=== PATIENT | female | born 1950 | race Caucasian/White ===

== ENCOUNTER 2019-03-20 08:10 | Inpatient (IN) | payer MEDICARE, MEDICAID ==
[~2019-03-20] VITALS: Ht 160 cm; Wt 98.0 kg
[2019-03-20] MEDS ORDERED: DILTIAZEM HCL 5MG/ML 5ML VIAL IV ONE ×4 (08:22→12:15)
[2019-03-20] MEDS ORDERED: ASPIRIN 81MG TABLET PO ONE (08:30)
[2019-03-20 09:07] LABS: BASOPHILS % 0.3 % (0.0-2.0); EOSINOPHILS % 0.1 % (0.0-5.0); HEMATOCRIT. 48.5 % (36.0-48.0); HEMOGLOBIN. 15.3 g/dL (12.0-16.0); LYMPHOCYTES % 12.2 % (20.0-50.0); MEAN CORPUSCULAR HEMOGLOBIN 29.5 pg (28.0-32.0); MEAN CORPUSCULAR VOLUME 93.3 fL (81.0-99.0); MEAN PLATELET VOLUME 9.2 fl (7.4-10.4); MONOCYTES % 5.4 % (2.0-8.0); PLATELET 312 x1000/uL (130-400)
[2019-03-20 09:12] LABS: CHLORIDE 100 mEq/L (98-107)
[2019-03-20] MEDS ORDERED: DILTIAZEM HCL 180MG CAPSULE CD 24HR PO ONE (09:30)
[2019-03-20] MEDS ORDERED: INSULIN REGULAR (HUMULIN R) 300UNITS/3ML SUBCUT ONE ×2 (09:45→14:30)
[2019-03-20] MEDS ORDERED: ONDANSETRON HCL 4MG/2ML INJ IV ONE (09:45)
[2019-03-20] MEDS ORDERED: DILTIAZEM HCL 125 MG in DEXT 5% WATER 100 ML IV ONE ×2 (09:45→10:15)
[2019-03-20] MEDS ORDERED: ENOXAPARIN 100MG/ML SYR SUBCUT ONE (09:45)
[2019-03-20] MEDS ORDERED: ASPIRIN 300MG SUPP PR ONE (09:45)
[2019-03-20] MEDS ORDERED: PIPERACILLIN/TAZ 3.375G PREMIX 50 ML IV ONE (10:15)
[2019-03-20 11:11] LABS: BG BASE EXCESS -10.8 mmol/L (-2.0-2.0); BG CARBOXYHEMOGLOBIN 0.3 % (0.5-1.5); BG DEOXYHEMOGLOBIN 5.2 % (0.0-5.0); BG FRACTION INSPIRED OXYGEN 21; BG HCO3 ACT 13.8 mmol/L (22.0-26.0); BG METHEMOGLOBIN 0.3 % (0.0-1.5); BG OXYGEN SATURATION 94.8 % (92.0-98.5); BG OXYHEMOGLOBIN 94.2 % (94.0-97.0); BG PCO2 28.2 mmHg (35.0-45.0); BG PH 7.308 (7.350-7.450); BG PO2 80.6 mmHg (75.0-100.0); BG SAMPLE SITE RIGHT RADIAL; BG TOTAL HEMOGLOBIN 15.3 g/dL (12.0-18.0); BG VENT MODE ROOM AIR
[2019-03-20 11:33] LABS: CLARITY URINE CLEAR (CLEAR); COLOR URINE YELLOW (YELLOW); KETONES URINE 2+ (NEGATIVE); LEUKOCYTE ESTERASE URINE NEGATIVE (NEGATIVE); NITRITE URINE NEGATIVE (NEGATIVE); OCCULT BLOOD URINE 2+ (NEGATIVE); PH URINE 6.5 (4.5-8.0); PROTEIN URINE 4+ (NEGATIVE); SPECIFIC GRAVITY URINE 1.021 (1.005-1.030); UROBILINOGEN URINE 0.2 E.U./dL (0.2-1.0)
[2019-03-20 12:13] LABS: VITAMIN B12 SERUM 250 pg/mL (211-911)
[2019-03-20 12:35] LABS: FOLIC ACID (FOLATE) SERUM > 20.00 ng/mL (>5.38)
[2019-03-20 12:38] LABS: METHADONE URINE SCREEN NEGATIVE (NEGATIVE); OPIATES URINE SCREEN NEGATIVE (NEGATIVE)
[2019-03-20 12:39] LABS: *AMPHETAMINES SCREEN URINE NEGATIVE (NEGATIVE); *BARBITURATES SCREEN URINE NEGATIVE (NEGATIVE); *BENZODIAZEPINES SCREEN URINE NEGATIVE (NEGATIVE); *COCAINE SCREEN URINE NEGATIVE (NEGATIVE); CANNABINOID URINE SCREEN NEGATIVE (NEGATIVE); PHENCYCLIDINE URINE SCREEN NEGATIVE (NEGATIVE)
[2019-03-20] MEDS ORDERED: IPRATROPIUM BROMIDE (0.02%) 0.5MG/2.5ML NEB HHN PRN (13:15)
[2019-03-20 14:30] LABS: INR 1.1; PARTIAL THROMBOPLASTIN TIME 21.9 sec (23.4-31.0); PROTHROMBIN TIME 11.4 sec (9.6-11.0)
[2019-03-20] MEDS ORDERED: AMIODARONE HCL 150 MG in DEXT 5% WATER 100 ML IV NR ×2 (14:45→19:00)
[2019-03-20] MEDS ORDERED: AMIODARONE HCL 900 MG in DEXT 5% WATER 482 ML IV SCH ×4 (15:00)
[2019-03-20] MEDS ORDERED: HYDROCODONE/ACETAMINOPHEN 5/325MG TABLET PO PRN (17:15)
[2019-03-20] MEDS ORDERED: IPRATROPIUM/ALBUTEROL 0.5-3(2.5)MG/3ML NEB HHN PRN (17:15)
[2019-03-20] MEDS ORDERED: ACETAMINOPHEN 325MG TABLET PO PRN (17:15)
[2019-03-20] MEDS ORDERED: ONDANSETRON HCL 4MG/2ML INJ IV PRN (17:15)
[2019-03-20 17:53] LABS: T4 FREE 0.95 ng/dL (0.76-1.46)
[2019-03-20] MEDS ORDERED: INSULIN REGULAR (DRIP) 100 UNITS in SODIUM CHLORIDE 0.9% 100 ML IV SCH (18:30)
[2019-03-20] MEDS ORDERED: SODIUM BICARBONATE 8.4% 1 MEQ/ML 50ML SYR IV SCH (23:11)
[2019-03-20 23:54] VITALS: BP 134/105
[2019-03-21] VITALS (90 sets, daily range): BP systolic 103–169; BP diastolic 45–105
[2019-03-21] MEDS ORDERED: INSULIN REGULAR (DRIP) 100 UNITS in SODIUM CHLORIDE 0.9% 100 ML IV SCH ×2
[2019-03-21] MEDS ORDERED: SODIUM CHLORIDE 0.9% 1,000 ML IV SCH (00:08)
[2019-03-21] MEDS ORDERED: LABETALOL HCL 20MG/4ML CARPUJECT IV PRN (00:09)
[2019-03-21] MEDS: DEXT 5%/LACTATED RINGERS 1,000 ML IV SCH ×2 (00:48→23:02)
[2019-03-21] MEDS ORDERED: DEXTROSE 50% WATER 50ML SYRINGE IV PRN ×3 (01:30→02:30)
[2019-03-21] MEDS: NICARDIPINE 100 MG in SODIUM CHLORIDE 0.9% 60 ML IV PRN (02:08)
[2019-03-21] MEDS: DILTIAZEM HCL 125 MG in DEXT 5% WATER 100 ML IV PRN ×2 (02:22→12:46)
[2019-03-21] MEDS ORDERED: BLOOD SUGAR DIAGNOSTIC STRIP TEST SCH (03:00)
[2019-03-21] MEDS ORDERED: INSULIN REGULAR (DRIP) 100 UNITS in SODIUM CHLORIDE 0.9% 99 ML IV SCH (03:00)
[2019-03-21] MEDS: MANNITOL 20% 125 ML IV SCH ×3 (04:04→13:43)
[2019-03-21 04:07] LABS: BASOPHILS % 0.2 % (0.0-2.0); EOSINOPHILS % 0.1 % (0.0-5.0); HEMATOCRIT. 42.5 % (36.0-48.0); HEMOGLOBIN. 13.8 g/dL (12.0-16.0); LYMPHOCYTES % 8.2 % (20.0-50.0); MEAN CORPUSCULAR HEMOGLOBIN 29.3 pg (28.0-32.0); MEAN CORPUSCULAR VOLUME 90.2 fL (81.0-99.0); MEAN PLATELET VOLUME 8.5 fl (7.4-10.4); MONOCYTES % 10.2 % (2.0-8.0); NEUTROPHILS % 81.3 % (40.0-76.0); PLATELET 319 x1000/uL (130-400); RED BLOOD CELL COUNT 4.72 mill/uL (4.2-5.4); RED CELL DISTRIBUTION WIDTH 15.1 % (11.6-14.6)
[2019-03-21] MEDS: BLOOD SUGAR DIAGNOSTIC STRIP TEST SCH ×4 (05:34→20:59)
[2019-03-21] MEDS ORDERED: DEXAMETHASONE 10 MG/ML VIAL IV SCH (06:00)
[2019-03-21] MEDS: INSULIN LISPRO 100 UNITS/ML SUBCUT SCH ×4 (06:46→21:05)
[2019-03-21] MEDS ORDERED: MAGNESIUM 2 G PREMIX 50 ML IV ONE (08:00)
[2019-03-21] MEDS ORDERED: MAGNESIUM 2 G PREMIX 50 ML IV NR (08:30)
[2019-03-21] MEDS: NYSTATIN POWDER 15GM TOP SCH ×3 (09:43→17:18)
[2019-03-21] MEDS: LEVETIRACETAM 500 MG in SODIUM CHLORIDE 0.9% 100 ML IV SCH ×2 (09:43→20:56)
[2019-03-21] MEDS ORDERED: INSULIN GLARGINE UD 100 UNITS/ML SYR SUBCUT SCH ×2 (10:00)
[2019-03-21] MEDS ORDERED: LIDOCAINE HCL 1% 20ML VIAL (Pyxis) INJ ONE (10:24)
[2019-03-21] MEDS ORDERED: SODIUM BICARBONATE 4% (2.4MEQ) 5ML VIAL IV ONE (10:24)
[2019-03-21] MEDS: FAMOTIDINE 20MG/2ML VIAL IV SCH (11:56)
[2019-03-21] MEDS: ESMOLOL 2500MG PREMIX 250 ML IV PRN ×2 (11:58→20:07)
[2019-03-21] MEDS ORDERED: ACETAMINOPHEN 650MG SUPP PR PRN (12:00)
[2019-03-21] MEDS ORDERED: INSULIN LISPRO 100 UNITS/ML SUBCUT NR (13:00)
[2019-03-21] MEDS ORDERED: INSULIN LISPRO 100 UNITS/ML SUBCUT ONE (17:00)
[2019-03-21] MEDS: DEXAMETHASONE 4MG/ML 1ML VIAL IV SCH (17:17)
[2019-03-21] MEDS: INSULIN GLARGINE UD 100 UNITS/ML SYR SUBCUT SCH (21:05)
[2019-03-22] VITALS (82 sets, daily range): BP systolic 101–154; BP diastolic 41–110
[2019-03-22] MEDS: DILTIAZEM HCL 125 MG in DEXT 5% WATER 100 ML IV PRN ×2 (01:43→13:43)
[2019-03-22 04:28] LABS: HEMATOCRIT. 40.3 % (36.0-48.0); HEMOGLOBIN. 13.3 g/dL (12.0-16.0); MEAN CORPUSCULAR HEMOGLOBIN 30.2 pg (28.0-32.0); MEAN CORPUSCULAR VOLUME 91.7 fL (81.0-99.0); MEAN PLATELET VOLUME 8.4 fl (7.4-10.4); PLATELET 276 x1000/uL (130-400); RED BLOOD CELL COUNT 4.39 mill/uL (4.2-5.4); RED CELL DISTRIBUTION WIDTH 15.4 % (11.6-14.6)
[2019-03-22 04:45] LABS: PHOSPHORUS 2.6 mg/dL (2.5-4.9)
[2019-03-22 05:12] LABS: PLATELET ESTIMATE NORMAL
[2019-03-22] MEDS: BLOOD SUGAR DIAGNOSTIC STRIP TEST SCH ×4 (06:28→21:37)
[2019-03-22] MEDS: INSULIN LISPRO 100 UNITS/ML SUBCUT SCH ×4 (06:29→21:35)
[2019-03-22] MEDS: DEXAMETHASONE 4MG/ML 1ML VIAL IV SCH ×2 (11:40→17:00)
[2019-03-22] MEDS: INSULIN GLARGINE UD 100 UNITS/ML SYR SUBCUT SCH ×2 (11:42→21:37)
[2019-03-22] MEDS: FAMOTIDINE 20MG/2ML VIAL IV SCH (11:46)
[2019-03-22] MEDS: DOCUSATE SODIUM 100MG CAPSULE PO PRN (11:46)
[2019-03-22] MEDS: LEVETIRACETAM 500 MG in SODIUM CHLORIDE 0.9% 100 ML IV SCH ×2 (11:47→21:22)
[2019-03-22] MEDS: NYSTATIN POWDER 15GM TOP SCH ×3 (11:47→17:00)
[2019-03-22] MEDS ORDERED: METO-539 PO (17:42)
[2019-03-22] MEDS ORDERED: ENAL20TA PO (17:42)
[2019-03-22] MEDS ORDERED: METF-416 PO (17:42)
[2019-03-22] MEDS ORDERED: ASPI-1393 PO (17:42)
[2019-03-22] MEDS ORDERED: LORA0.5T2 PO (17:42)
[2019-03-22] MEDS ORDERED: SIMV20TA6 PO (17:42)
[2019-03-22] MEDS ORDERED: METH10TA7 PO (17:42)
[2019-03-22] MEDS ORDERED: DIGOXIN 500MCG/2ML AMP IV SCH (18:00)
[2019-03-22] MEDS: DEXT 5%/LACTATED RINGERS 1,000 ML IV SCH (18:57)
[2019-03-23] VITALS (75 sets, daily range): BP systolic 65–173; BP diastolic 40–105
[2019-03-23 05:13] LABS: HEMATOCRIT. 46.3 % (36.0-48.0); HEMOGLOBIN. 14.8 g/dL (12.0-16.0); MEAN CORPUSCULAR HEMOGLOBIN 29.4 pg (28.0-32.0); MEAN CORPUSCULAR VOLUME 92.1 fL (81.0-99.0); PLATELET 237 x1000/uL (130-400); RED BLOOD CELL COUNT 5.03 mill/uL (4.2-5.4); RED CELL DISTRIBUTION WIDTH 15.4 % (11.6-14.6)
[2019-03-23 05:34] LABS: PHOSPHORUS 3.5 mg/dL (2.5-4.9)
[2019-03-23] MEDS: BLOOD SUGAR DIAGNOSTIC STRIP TEST SCH ×4 (07:07→21:00)
[2019-03-23] MEDS: INSULIN LISPRO 100 UNITS/ML SUBCUT SCH ×4 (07:07→21:12)
[2019-03-23] MEDS ORDERED: VANCOMYCIN 2,000 MG in DEXT 5% WATER 500 ML IV SCH (08:00)
[2019-03-23] MEDS: SODIUM CHLORIDE 0.9% 1,000 ML IV SCH (08:48)
[2019-03-23] MEDS: DEXAMETHASONE 4MG/ML 1ML VIAL IV SCH (08:49)
[2019-03-23] MEDS: LEVETIRACETAM 500 MG in SODIUM CHLORIDE 0.9% 100 ML IV SCH ×2 (08:49→21:00)
[2019-03-23] MEDS: NYSTATIN POWDER 15GM TOP SCH ×2 (09:16→18:35)
[2019-03-23] MEDS: ESMOLOL 2500MG PREMIX 250 ML IV PRN (09:17)
[2019-03-23] MEDS: INSULIN GLARGINE UD 100 UNITS/ML SYR SUBCUT SCH ×2 (09:22→21:13)
[2019-03-23] MEDS: FAMOTIDINE 20MG/2ML VIAL IV SCH (09:45)
[2019-03-23 10:09] LABS: PLATELET ESTIMATE NORMAL
[2019-03-23 15:09] LABS: COMPLEMENT C3 130 mg/dL (82-167)
[2019-03-23] MEDS ORDERED: DIGOXIN 500MCG/2ML AMP IV SCH (18:00)
[2019-03-24] VITALS (85 sets, daily range): BP systolic 84–187; BP diastolic 34–114
[2019-03-24] MEDS: SODIUM CHLORIDE 0.9% 1,000 ML IV SCH (04:36)
[2019-03-24 05:34] LABS: BASOPHILS % 0.1 % (0.0-2.0); HEMATOCRIT. 45.5 % (36.0-48.0); HEMOGLOBIN. 14.7 g/dL (12.0-16.0); LYMPHOCYTES % 9.9 % (20.0-50.0); MEAN CORPUSCULAR HEMOGLOBIN 30.1 pg (28.0-32.0); MEAN CORPUSCULAR VOLUME 92.8 fL (81.0-99.0); MONOCYTES % 3.7 % (2.0-8.0); NEUTROPHILS % 86.3 % (40.0-76.0); PLATELET 219 x1000/uL (130-400); RED CELL DISTRIBUTION WIDTH 15.6 % (11.6-14.6)
[2019-03-24 05:51] LABS: PHOSPHORUS 3.5 mg/dL (2.5-4.9)
[2019-03-24] MEDS: BLOOD SUGAR DIAGNOSTIC STRIP TEST SCH ×4 (07:11→21:00)
[2019-03-24] MEDS: INSULIN LISPRO 100 UNITS/ML SUBCUT SCH ×4 (07:23→22:12)
[2019-03-24] MEDS: ESMOLOL 2500MG PREMIX 250 ML IV PRN ×3 (07:24→22:26)
[2019-03-24] MEDS: FAMOTIDINE 20MG/2ML VIAL IV SCH (07:54)
[2019-03-24] MEDS: DEXAMETHASONE 4MG/ML 1ML VIAL IV SCH (07:54)
[2019-03-24] MEDS: LEVETIRACETAM 500 MG in SODIUM CHLORIDE 0.9% 100 ML IV SCH ×2 (07:54→21:55)
[2019-03-24] MEDS: NYSTATIN POWDER 15GM TOP SCH ×3 (07:58→17:13)
[2019-03-24 09:11] LABS: GLOMERULAR BASEMENT MEMB AB 3 units (0-20)
[2019-03-24] MEDS: INSULIN GLARGINE UD 100 UNITS/ML SYR SUBCUT SCH ×2 (11:37→22:12)
[2019-03-24] MEDS: VANCOMYCIN 1 G PREMIX 200 ML IV SCH (11:37)
[2019-03-24 13:06] LABS: ANTI-MYELOPEROXIDASE AB < 9.0 U/mL (0.0-9.0); ANTI-PROTEINASE 3 ABS < 3.5 U/mL (0.0-3.5)
[2019-03-24] MEDS: DIGOXIN 500MCG/2ML AMP IV SCH (17:10)
[2019-03-24] MEDS: CLONIDINE 0.1MG TABLET PO PRN (18:43)
[2019-03-25] VITALS (70 sets, daily range): BP systolic 86–190; BP diastolic 33–121
[2019-03-25] MEDS: SODIUM CHLORIDE 0.9% 1,000 ML IV SCH ×2 (02:26→20:15)
[2019-03-25] MEDS: ESMOLOL 2500MG PREMIX 250 ML IV PRN ×4 (04:06→21:00)
[2019-03-25] MEDS: VANCOMYCIN 1 G PREMIX 200 ML IV SCH ×2 (04:33→21:46)
[2019-03-25 05:05] LABS: BASOPHILS % 0.1 % (0.0-2.0); HEMATOCRIT. 43.9 % (36.0-48.0); HEMOGLOBIN. 14.4 g/dL (12.0-16.0); MEAN CORPUSCULAR VOLUME 91.2 fL (81.0-99.0); MEAN PLATELET VOLUME 8.6 fl (7.4-10.4); NEUTROPHILS % 84.9 % (40.0-76.0); PLATELET 207 x1000/uL (130-400); RED BLOOD CELL COUNT 4.81 mill/uL (4.2-5.4); RED CELL DISTRIBUTION WIDTH 14.8 % (11.6-14.6)
[2019-03-25 05:20] LABS: PHOSPHORUS 2.9 mg/dL (2.5-4.9)
[2019-03-25] MEDS: INSULIN LISPRO 100 UNITS/ML SUBCUT SCH ×4 (06:29→22:34)
[2019-03-25] MEDS: BLOOD SUGAR DIAGNOSTIC STRIP TEST SCH ×4 (06:30→22:20)
[2019-03-25] MEDS: FAMOTIDINE 20MG/2ML VIAL IV SCH (09:04)
[2019-03-25] MEDS: LEVETIRACETAM 500 MG in SODIUM CHLORIDE 0.9% 100 ML IV SCH ×2 (09:04→21:31)
[2019-03-25] MEDS: DEXAMETHASONE 4MG/ML 1ML VIAL IV SCH (09:04)
[2019-03-25] MEDS: NYSTATIN POWDER 15GM TOP SCH ×3 (09:04→17:33)
[2019-03-25] MEDS: METOPROLOL TARTRATE 50MG TABLET PO SCH ×2 (09:05→20:15)
[2019-03-25] MEDS: INSULIN GLARGINE UD 100 UNITS/ML SYR SUBCUT SCH ×2 (11:39→22:33)
[2019-03-25] MEDS: NICARDIPINE 100 MG in SODIUM CHLORIDE 0.9% 60 ML IV PRN (21:26)
[2019-03-26] VITALS (64 sets, daily range): BP systolic 80–161; BP diastolic 49–94
[2019-03-26] MEDS: ESMOLOL 2500MG PREMIX 250 ML IV PRN ×2 (02:46→06:39)
[2019-03-26 05:43] LABS: BASOPHILS % 0.1 % (0.0-2.0); HEMOGLOBIN. 15.5 g/dL (12.0-16.0); LYMPHOCYTES % 8.9 % (20.0-50.0); MEAN PLATELET VOLUME 9.2 fl (7.4-10.4); MONOCYTES % 7.3 % (2.0-8.0); NEUTROPHILS % 83.7 % (40.0-76.0); PLATELET 201 x1000/uL (130-400); RED BLOOD CELL COUNT 5.16 mill/uL (4.2-5.4)
[2019-03-26] MEDS: BLOOD SUGAR DIAGNOSTIC STRIP TEST SCH ×4 (06:30→21:00)
[2019-03-26] MEDS: INSULIN LISPRO 100 UNITS/ML SUBCUT SCH ×4 (06:37→22:18)
[2019-03-26] MEDS: FAMOTIDINE 20MG/2ML VIAL IV SCH (10:04)
[2019-03-26] MEDS: LEVETIRACETAM 500 MG in SODIUM CHLORIDE 0.9% 100 ML IV SCH ×2 (10:04→22:19)
[2019-03-26] MEDS: NYSTATIN POWDER 15GM TOP SCH ×3 (10:05→18:06)
[2019-03-26] MEDS: METOPROLOL TARTRATE 50MG TABLET PO SCH ×3 (10:05→22:00)
[2019-03-26] MEDS: DOCUSATE SODIUM 100MG CAPSULE PO PRN (10:05)
[2019-03-26] MEDS: INSULIN GLARGINE UD 100 UNITS/ML SYR SUBCUT SCH ×2 (10:08→22:19)
[2019-03-26] MEDS ORDERED: MAGNESIUM 2 G PREMIX 50 ML IV NR (12:00)
[2019-03-26] MEDS ORDERED: DILTIAZEM HCL 30MG TABLET PO SCH (14:00)
[2019-03-26] MEDS: VANCOMYCIN 1 G PREMIX 200 ML IV SCH (18:05)
[2019-03-26] MEDS: DIGOXIN 500MCG/2ML AMP IV SCH (18:06)
[2019-03-27] VITALS (12 sets, daily range): BP systolic 136–157; BP diastolic 72–97
[2019-03-27] MEDS: METOPROLOL TARTRATE 50MG TABLET PO SCH ×3 (06:00→22:05)
[2019-03-27 06:52] LABS: BASOPHILS % 0.1 % (0.0-2.0); EOSINOPHILS % 1.6 % (0.0-5.0); HEMATOCRIT. 46.1 % (36.0-48.0); HEMOGLOBIN. 14.9 g/dL (12.0-16.0); LYMPHOCYTES % 18.8 % (20.0-50.0); MEAN CORPUSCULAR HEMOGLOBIN 29.6 pg (28.0-32.0); MEAN CORPUSCULAR VOLUME 91.1 fL (81.0-99.0); MEAN PLATELET VOLUME 9.3 fl (7.4-10.4); NEUTROPHILS % 73.5 % (40.0-76.0); PLATELET 189 x1000/uL (130-400); RED BLOOD CELL COUNT 5.06 mill/uL (4.2-5.4); RED CELL DISTRIBUTION WIDTH 15.1 % (11.6-14.6)
[2019-03-27 06:55] LABS: PHOSPHORUS 2.8 mg/dL (2.5-4.9)
[2019-03-27] MEDS: BLOOD SUGAR DIAGNOSTIC STRIP TEST SCH ×4 (08:25→21:14)
[2019-03-27] MEDS: INSULIN LISPRO 100 UNITS/ML SUBCUT SCH ×4 (08:29→21:15)
[2019-03-27] MEDS: FAMOTIDINE 20MG/2ML VIAL IV SCH (08:30)
[2019-03-27] MEDS: NYSTATIN POWDER 15GM TOP SCH ×3 (08:30→16:04)
[2019-03-27] MEDS: VANCOMYCIN 1 G PREMIX 200 ML IV SCH (09:45)
[2019-03-27] MEDS: LEVETIRACETAM 500 MG in SODIUM CHLORIDE 0.9% 100 ML IV SCH ×2 (10:00→21:14)
[2019-03-27 10:06] LABS: ATYPICAL P-ANCA <1:20 titer (Neg:<1:20); CYTOPLASMIC C-ANCA <1:20 titer (Neg:<1:20); PERINUCLEAR P-ANCA <1:20 titer (Neg:<1:20)
[2019-03-27] MEDS: INSULIN GLARGINE UD 100 UNITS/ML SYR SUBCUT SCH ×2 (10:43→22:06)
[2019-03-27] MEDS: ASPIRIN 81MG EC TABLET PO SCH (11:00)
[2019-03-27] MEDS ORDERED: REGADENOSON 0.4 MG/5 ML IV ONE (13:16)
[2019-03-27] MEDS ORDERED: AMPICILLIN 2,000 MG in SODIUM CHLORIDE 0.9% 100 ML IV SCH (17:00)
[2019-03-27] MEDS: DIGOXIN 125MCG TABLET PO SCH (17:30)
[2019-03-27] MEDS: AMPICILLIN 2,000 MG in SODIUM CHLORIDE 0.9% 100 ML IV SCH (18:53)
[2019-03-28] VITALS (11 sets, daily range): BP systolic 129–166; BP diastolic 66–89
[2019-03-28] MEDS: AMPICILLIN 2,000 MG in SODIUM CHLORIDE 0.9% 100 ML IV SCH ×4 (00:48→17:32)
[2019-03-28 06:16] LABS: HEMATOCRIT. 43.4 % (36.0-48.0); HEMOGLOBIN. 14.2 g/dL (12.0-16.0); MEAN CORPUSCULAR HEMOGLOBIN 29.7 pg (28.0-32.0); MEAN CORPUSCULAR VOLUME 90.9 fL (81.0-99.0); MEAN PLATELET VOLUME 10.1 fl (7.4-10.4); PLATELET 160 x1000/uL (130-400); RED BLOOD CELL COUNT 4.78 mill/uL (4.2-5.4); RED CELL DISTRIBUTION WIDTH 15.4 % (11.6-14.6)
[2019-03-28] MEDS: METOPROLOL TARTRATE 50MG TABLET PO SCH ×3 (06:33→21:53)
[2019-03-28 07:24] LABS: PHOSPHORUS 3.2 mg/dL (2.5-4.9)
[2019-03-28] MEDS: BLOOD SUGAR DIAGNOSTIC STRIP TEST SCH ×4 (07:30→21:07)
[2019-03-28] MEDS: INSULIN LISPRO 100 UNITS/ML SUBCUT SCH ×4 (08:00→21:00)
[2019-03-28] MEDS: ASPIRIN 81MG EC TABLET PO SCH (08:42)
[2019-03-28] MEDS: FAMOTIDINE 20MG/2ML VIAL IV SCH (08:42)
[2019-03-28] MEDS: NYSTATIN POWDER 15GM TOP SCH ×3 (08:45→16:37)
[2019-03-28] MEDS: LEVETIRACETAM 500 MG in SODIUM CHLORIDE 0.9% 100 ML IV SCH ×2 (09:40→21:07)
[2019-03-28] MEDS: INSULIN GLARGINE UD 100 UNITS/ML SYR SUBCUT SCH ×2 (09:44→21:53)
[2019-03-28 16:31] LABS: PLATELET ESTIMATE NORMAL
[2019-03-28] MEDS: DIGOXIN 125MCG TABLET PO SCH (17:33)
[2019-03-28] MEDS: CLONIDINE 0.1MG TABLET PO PRN (17:48)
[2019-03-29] VITALS (12 sets, daily range): BP systolic 116–145; BP diastolic 60–89
[2019-03-29] MEDS: AMPICILLIN 2,000 MG in SODIUM CHLORIDE 0.9% 100 ML IV SCH ×5 (00:19→23:24)
[2019-03-29] MEDS: METOPROLOL TARTRATE 50MG TABLET PO SCH ×3 (05:59→20:52)
[2019-03-29 07:09] LABS: BASOPHILS % 0.1 % (0.0-2.0); HEMATOCRIT. 40.9 % (36.0-48.0); HEMOGLOBIN. 13.6 g/dL (12.0-16.0); MEAN CORPUSCULAR HEMOGLOBIN 29.9 pg (28.0-32.0); MEAN CORPUSCULAR VOLUME 89.9 fL (81.0-99.0); MEAN PLATELET VOLUME 9.9 fl (7.4-10.4); MONOCYTES % 7.7 % (2.0-8.0); NEUTROPHILS % 73.2 % (40.0-76.0); PLATELET 156 x1000/uL (130-400); RED BLOOD CELL COUNT 4.54 mill/uL (4.2-5.4); RED CELL DISTRIBUTION WIDTH 15.6 % (11.6-14.6)
[2019-03-29] MEDS: BLOOD SUGAR DIAGNOSTIC STRIP TEST SCH ×4 (07:30→20:59)
[2019-03-29] MEDS: INSULIN LISPRO 100 UNITS/ML SUBCUT SCH ×4 (08:00→21:00)
[2019-03-29 09:11] LABS: PHOSPHORUS 3.5 mg/dL (2.5-4.9)
[2019-03-29] MEDS: ASPIRIN 81MG EC TABLET PO SCH (09:15)
[2019-03-29] MEDS: LEVETIRACETAM 500 MG in SODIUM CHLORIDE 0.9% 100 ML IV SCH ×2 (09:15→23:20)
[2019-03-29] MEDS: FAMOTIDINE 20MG/2ML VIAL IV SCH (09:15)
[2019-03-29] MEDS: NYSTATIN POWDER 15GM TOP SCH ×3 (09:16→17:44)
[2019-03-29] MEDS: INSULIN GLARGINE UD 100 UNITS/ML SYR SUBCUT SCH ×2 (11:08→23:23)
[2019-03-29] MEDS ORDERED: MAGNESIUM 2 G PREMIX 50 ML IV NR (14:00)
[2019-03-29] MEDS: DIGOXIN 125MCG TABLET PO SCH (17:43)
[2019-03-30] VITALS (14 sets, daily range): BP systolic 135–158; BP diastolic 64–106
[2019-03-30] MEDS: AMPICILLIN 2,000 MG in SODIUM CHLORIDE 0.9% 100 ML IV SCH ×4 (07:23→23:22)
[2019-03-30 07:26] LABS: BASOPHILS % 0.1 % (0.0-2.0); EOSINOPHILS % 1.9 % (0.0-5.0); HEMATOCRIT. 40.1 % (36.0-48.0); HEMOGLOBIN. 13.2 g/dL (12.0-16.0); MEAN CORPUSCULAR HEMOGLOBIN 29.7 pg (28.0-32.0); MEAN CORPUSCULAR VOLUME 90.2 fL (81.0-99.0); MEAN PLATELET VOLUME 9.9 fl (7.4-10.4); MONOCYTES % 9.4 % (2.0-8.0); NEUTROPHILS % 68.6 % (40.0-76.0); PLATELET 175 x1000/uL (130-400); RED BLOOD CELL COUNT 4.45 mill/uL (4.2-5.4); RED CELL DISTRIBUTION WIDTH 15.4 % (11.6-14.6)
[2019-03-30] MEDS: BLOOD SUGAR DIAGNOSTIC STRIP TEST SCH ×4 (07:30→21:37)
[2019-03-30] MEDS: INSULIN LISPRO 100 UNITS/ML SUBCUT SCH ×4 (08:00→21:36)
[2019-03-30 08:03] LABS: PHOSPHORUS 3.4 mg/dL (2.5-4.9)
[2019-03-30] MEDS: ASPIRIN 81MG EC TABLET PO SCH (09:10)
[2019-03-30] MEDS: FAMOTIDINE 20MG/2ML VIAL IV SCH (09:10)
[2019-03-30] MEDS: METOPROLOL TARTRATE 50MG TABLET PO SCH ×2 (09:10→21:03)
[2019-03-30] MEDS: LEVETIRACETAM 500 MG in SODIUM CHLORIDE 0.9% 100 ML IV SCH ×2 (09:11→21:04)
[2019-03-30] MEDS: NYSTATIN POWDER 15GM TOP SCH ×3 (09:11→17:00)
[2019-03-30] MEDS: INSULIN GLARGINE UD 100 UNITS/ML SYR SUBCUT SCH ×2 (10:10→22:00)
[2019-03-30] MEDS: DIGOXIN 125MCG TABLET PO SCH (18:00)
[2019-03-31] VITALS (17 sets, daily range): BP systolic 128–167; BP diastolic 58–115
[2019-03-31] MEDS: AMPICILLIN 2,000 MG in SODIUM CHLORIDE 0.9% 100 ML IV SCH ×2 (04:54→12:42)
[2019-03-31 06:09] LABS: BASOPHILS % 0.1 % (0.0-2.0); EOSINOPHILS % 2.1 % (0.0-5.0); HEMATOCRIT. 41.9 % (36.0-48.0); HEMOGLOBIN. 13.7 g/dL (12.0-16.0); LYMPHOCYTES % 22.2 % (20.0-50.0); MEAN CORPUSCULAR VOLUME 91.3 fL (81.0-99.0); MEAN PLATELET VOLUME 10.1 fl (7.4-10.4); MONOCYTES % 7.9 % (2.0-8.0); NEUTROPHILS % 67.7 % (40.0-76.0); PLATELET 190 x1000/uL (130-400); RED BLOOD CELL COUNT 4.59 mill/uL (4.2-5.4); RED CELL DISTRIBUTION WIDTH 15.5 % (11.6-14.6)
[2019-03-31 07:33] LABS: PHOSPHORUS 3.4 mg/dL (2.5-4.9)
[2019-03-31] MEDS: BLOOD SUGAR DIAGNOSTIC STRIP TEST SCH ×4 (07:40→21:26)
[2019-03-31] MEDS: INSULIN LISPRO 100 UNITS/ML SUBCUT SCH ×4 (08:00→21:45)
[2019-03-31] MEDS: ASPIRIN 81MG EC TABLET PO SCH (08:52)
[2019-03-31] MEDS: FAMOTIDINE 20MG/2ML VIAL IV SCH (08:52)
[2019-03-31] MEDS: LEVETIRACETAM 500 MG in SODIUM CHLORIDE 0.9% 100 ML IV SCH ×2 (08:52→21:39)
[2019-03-31] MEDS: METOPROLOL TARTRATE 50MG TABLET PO SCH ×2 (08:53→21:27)
[2019-03-31] MEDS: NYSTATIN POWDER 15GM TOP SCH ×3 (08:53→17:23)
[2019-03-31] MEDS ORDERED: MAGNESIUM 1 G PREMIX 100 ML IV NR (11:00)
[2019-03-31] MEDS: INSULIN GLARGINE UD 100 UNITS/ML SYR SUBCUT SCH ×2 (11:08→21:44)
[2019-03-31] MEDS: LISINOPRIL 10MG TABLET PO SCH ×2 (11:08→21:27)
[2019-03-31] MEDS: DIGOXIN 125MCG TABLET PO SCH (17:19)
[2019-04-01] VITALS (12 sets, daily range): BP systolic 90–145; BP diastolic 43–73
[2019-04-01] MEDS: BLOOD SUGAR DIAGNOSTIC STRIP TEST SCH ×4 (08:00→21:00)
[2019-04-01 08:02] LABS: BASOPHILS % 0.3 % (0.0-2.0); EOSINOPHILS % 0.1 % (0.0-5.0); HEMATOCRIT. 42.8 % (36.0-48.0); HEMOGLOBIN. 14.2 g/dL (12.0-16.0); LYMPHOCYTES % 9.2 % (20.0-50.0); MEAN CORPUSCULAR VOLUME 90.3 fL (81.0-99.0); MEAN PLATELET VOLUME 9.4 fl (7.4-10.4); NEUTROPHILS % 84.4 % (40.0-76.0); PLATELET 312 x1000/uL (130-400); RED BLOOD CELL COUNT 4.74 mill/uL (4.2-5.4); RED CELL DISTRIBUTION WIDTH 15.5 % (11.6-14.6)
[2019-04-01] MEDS: INSULIN LISPRO 100 UNITS/ML SUBCUT SCH ×5 (08:24→22:15)
[2019-04-01] MEDS ORDERED: DIGOXIN 500MCG/2ML AMP IV NR (08:45)
[2019-04-01] MEDS: METOPROLOL TARTRATE 50MG TABLET PO SCH ×2 (09:00→21:00)
[2019-04-01] MEDS: FAMOTIDINE 20MG/2ML VIAL IV SCH (09:10)
[2019-04-01] MEDS: LEVETIRACETAM 500 MG in SODIUM CHLORIDE 0.9% 100 ML IV SCH ×2 (09:10→22:07)
[2019-04-01] MEDS: ASPIRIN 81MG EC TABLET PO SCH (09:10)
[2019-04-01 09:19] LABS: PHOSPHORUS 4.3 mg/dL (2.5-4.9)
[2019-04-01] MEDS: INSULIN GLARGINE UD 100 UNITS/ML SYR SUBCUT SCH ×2 (10:53→22:15)
[2019-04-01] MEDS: NYSTATIN POWDER 15GM TOP SCH ×3 (10:54→17:24)
[2019-04-01] MEDS ORDERED: DIGOXIN 500MCG/2ML AMP IV PRN (11:30)
[2019-04-01] MEDS: DIGOXIN 125MCG TABLET PO SCH (17:52)
[2019-04-02] VITALS (16 sets, daily range): BP systolic 101–145; BP diastolic 60–109
[2019-04-02 07:43] LABS: BASOPHILS % 0.3 % (0.0-2.0); EOSINOPHILS % 1.8 % (0.0-5.0); HEMATOCRIT. 40.9 % (36.0-48.0); HEMOGLOBIN. 13.5 g/dL (12.0-16.0); LYMPHOCYTES % 25.6 % (20.0-50.0); MEAN CORPUSCULAR HEMOGLOBIN 30.2 pg (28.0-32.0); MEAN CORPUSCULAR VOLUME 91.4 fL (81.0-99.0); MEAN PLATELET VOLUME 10.1 fl (7.4-10.4); MONOCYTES % 6.3 % (2.0-8.0); PLATELET 194 x1000/uL (130-400); RED BLOOD CELL COUNT 4.48 mill/uL (4.2-5.4); RED CELL DISTRIBUTION WIDTH 15.7 % (11.6-14.6)
[2019-04-02] MEDS: BLOOD SUGAR DIAGNOSTIC STRIP TEST SCH ×4 (08:03→21:54)
[2019-04-02] MEDS: INSULIN LISPRO 100 UNITS/ML SUBCUT SCH ×7 (08:22→21:00)
[2019-04-02] MEDS: LEVETIRACETAM 500 MG in SODIUM CHLORIDE 0.9% 100 ML IV SCH ×2 (08:24→21:44)
[2019-04-02] MEDS: METOPROLOL TARTRATE 50MG TABLET PO SCH ×2 (08:24→21:45)
[2019-04-02] MEDS: ASPIRIN 81MG EC TABLET PO SCH (08:24)
[2019-04-02] MEDS: NYSTATIN POWDER 15GM TOP SCH ×3 (08:25→17:51)
[2019-04-02] MEDS: INSULIN GLARGINE UD 100 UNITS/ML SYR SUBCUT SCH ×2 (10:07→21:53)
[2019-04-02] MEDS: FAMOTIDINE 20MG/2ML VIAL IV SCH (12:49)
[2019-04-02] MEDS: DIGOXIN 125MCG TABLET PO SCH (17:51)
[2019-04-03] VITALS (14 sets, daily range): BP systolic 82–153; BP diastolic 49–104
[2019-04-03] MEDS: INSULIN LISPRO 100 UNITS/ML SUBCUT SCH ×7 (07:30→21:00)
[2019-04-03] MEDS: BLOOD SUGAR DIAGNOSTIC STRIP TEST SCH ×4 (07:35→21:14)
[2019-04-03] MEDS: LEVETIRACETAM 500 MG in SODIUM CHLORIDE 0.9% 100 ML IV SCH ×2 (08:41→21:09)
[2019-04-03] MEDS: ASPIRIN 81MG EC TABLET PO SCH (08:41)
[2019-04-03] MEDS: METOPROLOL TARTRATE 50MG TABLET PO SCH ×2 (08:42→21:10)
[2019-04-03] MEDS: FAMOTIDINE 20MG/2ML VIAL IV SCH (08:44)
[2019-04-03] MEDS: NYSTATIN POWDER 15GM TOP SCH ×3 (08:57→19:11)
[2019-04-03] MEDS: INSULIN GLARGINE UD 100 UNITS/ML SYR SUBCUT SCH ×2 (09:01→21:15)
[2019-04-03 09:23] LABS: BASOPHILS % 0.4 % (0.0-2.0); EOSINOPHILS % 1.9 % (0.0-5.0); HEMATOCRIT. 41.1 % (36.0-48.0); HEMOGLOBIN. 13.6 g/dL (12.0-16.0); LYMPHOCYTES % 18.2 % (20.0-50.0); MEAN CORPUSCULAR VOLUME 90.8 fL (81.0-99.0); MONOCYTES % 5.6 % (2.0-8.0); NEUTROPHILS % 73.9 % (40.0-76.0); PLATELET 247 x1000/uL (130-400); RED BLOOD CELL COUNT 4.53 mill/uL (4.2-5.4); RED CELL DISTRIBUTION WIDTH 16.2 % (11.6-14.6)
[2019-04-03 09:43] LABS: CHLORIDE 108 mEq/L (98-107)
[2019-04-03 09:48] LABS: PHOSPHORUS 3.7 mg/dL (2.5-4.9)
[2019-04-03] MEDS ORDERED: MAGNESIUM 2 G PREMIX 50 ML IV SCH (14:00)
[2019-04-03] MEDS ORDERED: KEPP500 MT (16:51)
[2019-04-03] MEDS ORDERED: INSLIS SUBCUT (16:51)
[2019-04-03] MEDS ORDERED: DIGO-26 PO (16:51)
[2019-04-03] MEDS ORDERED: METO-539 PO (16:51)
[2019-04-03] MEDS ORDERED: LANTUSUD SUBCUT (16:51)
[2019-04-03] MEDS: DIGOXIN 125MCG TABLET PO SCH (19:11)
[2019-04-04] VITALS (11 sets, daily range): BP systolic 123–154; BP diastolic 62–103
[2019-04-04] MEDS: INSULIN LISPRO 100 UNITS/ML SUBCUT SCH ×4 (06:40→13:10)
[2019-04-04] MEDS: BLOOD SUGAR DIAGNOSTIC STRIP TEST SCH ×2 (06:40→11:50)
[2019-04-04 06:48] LABS: BASOPHILS % 0.4 % (0.0-2.0); EOSINOPHILS % 1.5 % (0.0-5.0); LYMPHOCYTES % 17.6 % (20.0-50.0); MEAN CORPUSCULAR HEMOGLOBIN 29.9 pg (28.0-32.0); MEAN PLATELET VOLUME 8.7 fl (7.4-10.4); MONOCYTES % 5.8 % (2.0-8.0); NEUTROPHILS % 74.7 % (40.0-76.0); PLATELET 275 x1000/uL (130-400); RED BLOOD CELL COUNT 4.67 mill/uL (4.2-5.4); RED CELL DISTRIBUTION WIDTH 15.6 % (11.6-14.6)
[2019-04-04 07:53] LABS: PHOSPHORUS 3.7 mg/dL (2.5-4.9)
[2019-04-04] MEDS: METOPROLOL TARTRATE 50MG TABLET PO SCH (08:23)
[2019-04-04] MEDS: LEVETIRACETAM 500 MG in SODIUM CHLORIDE 0.9% 100 ML IV SCH (08:23)
[2019-04-04] MEDS: NYSTATIN POWDER 15GM TOP SCH ×2 (08:24→13:10)
[2019-04-04] MEDS: ASPIRIN 81MG EC TABLET PO SCH (08:24)
[2019-04-04] MEDS: FAMOTIDINE 20MG/2ML VIAL IV SCH (08:24)
[2019-04-04] MEDS: INSULIN GLARGINE UD 100 UNITS/ML SYR SUBCUT SCH (10:33)
[2019-04-06 19:13] LABS: 25-HYDROXY VITAMIN D3 13 ng/mL (.)
== END 2019-04-04 17:33 | DRG 871 ==
LOC: ER 08:10 → UNDOADMIN 09:48 → MICUNO 09:48 → 7WST 09:48 → EDBEDREQ 09:53 → EDBEDREQSVC 09:53 → EDBEDREQTM 09:56 → ENRESERV 22:31 → 5EST 03-26 23:00
PROVIDERS: ADMIT Internal Medicine; ATTEND Internal Medicine
PROC: 02HV33Z Insertion of Infusion Device into Superior Vena Cava, Percutaneous Approach (ICD-10-PCS; principal; 2019-03-21)
PROC: B548ZZA Ultrasonography of Superior Vena Cava, Guidance (ICD-10-PCS; 2019-03-21)
PROC: 4A00X4Z Measurement of Central Nervous Electrical Activity, External Approach (ICD-10-PCS; 2019-03-21)
DX: A41.9 Sepsis, unspecified organism (principal); I63.9 Cerebral infarction, unspecified; J96.00 Acute respiratory failure, unspecified whether with hypoxia or hypercapnia; G92 Toxic encephalopathy; E11.10 Type 2 diabetes mellitus with ketoacidosis without coma; G93.6 Cerebral edema; G82.50 Quadriplegia, unspecified; N17.9 Acute kidney failure, unspecified; I50.32 Chronic diastolic (congestive) heart failure; R47.01 Aphasia; I62.9 Nontraumatic intracranial hemorrhage, unspecified; E83.42 Hypomagnesemia; E03.9 Hypothyroidism, unspecified; K43.9 Ventral hernia without obstruction or gangrene; E11.42 Type 2 diabetes mellitus with diabetic polyneuropathy; R80.9 Proteinuria, unspecified; E11.65 Type 2 diabetes mellitus with hyperglycemia; E11.621 Type 2 diabetes mellitus with foot ulcer; L97.529 Non-pressure chronic ulcer of other part of left foot with unspecified severity; L84 Corns and callosities; K57.30 Diverticulosis of large intestine without perforation or abscess without bleeding; E11.51 Type 2 diabetes mellitus with diabetic peripheral angiopathy without gangrene; E11.649 Type 2 diabetes mellitus with hypoglycemia without coma; I25.10 Atherosclerotic heart disease of native coronary artery without angina pectoris; R13.10 Dysphagia, unspecified; Z79.01 Long term (current) use of anticoagulants; Z79.4 Long term (current) use of insulin; Z82.49 Family history of ischemic heart disease and other diseases of the circulatory system; Z83.3 Family history of diabetes mellitus; Z91.14 Patient's other noncompliance with medication regimen; Z86.73 Personal history of transient ischemic attack (TIA), and cerebral infarction without residual deficits
CPT/HCPCS: 36415; 36600; 70551; 71045; 73620; 74176; 76770; 76937; 78580; 80048; 80061; 80076; 80162; 80202; 80305; 80320; 81003; 82010; 82140; 82306; 82375; 82550; 82570; 82607; 82746; 82805; 82962; 83036; 83520; 83605; 83735; 83880; 84100; 84134; 84145; 84156; 84439; 84443; 84481; 84484; 86160; 86256; 92523; 92610; 93005; 93306; 93880; 93971; 97110; 97112; 97163; 97167; 97530; 99291; C1725; J0282; J0290; J1100; J1160; J1650; J1815; J1953; J2405; J2543; J2785; J3370; J3475; J3490; J7030; J7050; J7060; J7121; A4315

== ENCOUNTER 2019-06-10 23:30 | Inpatient (IN) | payer MEDICARE, MEDICAID ==
[~2019-06-10] VITALS: Ht 165.1 cm; Wt 90.7 kg
[~2019-06-10 23:30] MED LIST: ASPI-1393 PO; DIGO-26 PO; INSLIS SUBCUT; KEPP500 MT; LANTUSUD SUBCUT; LORA0.5T2 PO; METH10TA7 PO; METO-539 PO; SIMV20TA6 PO
[2019-06-10] MEDS ORDERED: DILTIAZEM HCL 5MG/ML 5ML VIAL IV ONE (23:45)
[2019-06-10] MEDS ORDERED: ASPIRIN 81MG TABLET PO ONE (23:45)
[2019-06-11 00:14] LABS: BG BASE EXCESS -3.2 mmol/L (-2.0-2.0); BG BILEVEL POS AIRWAY PRESSURE 15/5; BG CARBOXYHEMOGLOBIN 0.1 % (0.5-1.5); BG DEOXYHEMOGLOBIN 0.7 % (0.0-5.0); BG FRACTION INSPIRED OXYGEN 100; BG HCO3 ACT 18.6 mmol/L (22.0-26.0); BG METHEMOGLOBIN 1.1 % (0.0-1.5); BG OXYGEN SATURATION 99.3 % (92.0-98.5); BG OXYHEMOGLOBIN 98.1 % (94.0-97.0); BG PCO2 26.5 mmHg (35.0-45.0); BG PH 7.464 (7.350-7.450); BG PO2 455.8 mmHg (75.0-100.0); BG SAMPLE SITE RIGHT RADIAL; BG TOTAL HEMOGLOBIN 16.8 g/dL (12.0-18.0); BG VENT MODE MASK - BIPAP; BG VENT RATE 16 set
[2019-06-11 00:15] LABS: INR 1.1
[2019-06-11 00:16] LABS: HEMATOCRIT. 42.2 % (36.0-48.0); HEMOGLOBIN. 13.9 g/dL (12.0-16.0); MEAN CORPUSCULAR HEMOGLOBIN 30.7 pg (28.0-32.0); MEAN CORPUSCULAR VOLUME 93.2 fL (81.0-99.0); MEAN PLATELET VOLUME 8.8 fl (7.4-10.4); PLATELET 269 x1000/uL (130-400); RED BLOOD CELL COUNT 4.53 mill/uL (4.2-5.4); RED CELL DISTRIBUTION WIDTH 14.4 % (11.6-14.6)
[2019-06-11 00:18] LABS: CHLORIDE 108 mEq/L (98-107)
[2019-06-11] MEDS: ATORVASTATIN CALCIUM 20MG TABLET PO SCH (00:50)
[2019-06-11] MEDS ORDERED: FUROSEMIDE 40MG/4ML VIAL IVP SCH (04:45)
[2019-06-11] MEDS ORDERED: CEFTRIAXONE 1 G PREMIX 50 ML IV ONE (05:15)
[2019-06-11 05:24] LABS: CLARITY URINE TURBID (CLEAR); COLOR URINE YELLOW (YELLOW); KETONES URINE TRACE (NEGATIVE); LEUKOCYTE ESTERASE URINE 3+ (NEGATIVE); NITRITE URINE NEGATIVE (NEGATIVE); OCCULT BLOOD URINE 3+ (NEGATIVE); PH URINE 5.5 (4.5-8.0); PROTEIN URINE 4+ (NEGATIVE); SPECIFIC GRAVITY URINE 1.021 (1.005-1.030); UROBILINOGEN URINE 0.2 E.U./dL (0.2-1.0)
[2019-06-11 07:20] LABS: PLATELET ESTIMATE NORMAL
[2019-06-11] MEDS ORDERED: HYDROCODONE/ACETAMINOPHEN 5/325MG TABLET PO PRN (08:30)
[2019-06-11] MEDS ORDERED: CLONIDINE 0.1MG TABLET PO PRN (08:30)
[2019-06-11] MEDS ORDERED: IPRATROPIUM/ALBUTEROL 0.5-3(2.5)MG/3ML NEB HHN PRN (08:30)
[2019-06-11] MEDS ORDERED: ACETAMINOPHEN 325MG TABLET PO PRN (08:30)
[2019-06-11] MEDS ORDERED: ONDANSETRON HCL 4MG/2ML INJ IV PRN (08:30)
[2019-06-11] MEDS ORDERED: IPRATROPIUM BROMIDE (0.02%) 0.5MG/2.5ML NEB HHN PRN (15:45)
[2019-06-11] MEDS ORDERED: DILTIAZEM HCL 125 MG in DEXT 5% WATER 100 ML IV PRN (18:15)
[2019-06-11] MEDS: LEVETIRACETAM 500MG TABLET PO SCH (19:52)
[2019-06-11] MEDS ORDERED: INSULIN REGULAR (HUMULIN R) 300UNITS/3ML SUBCUT NR (20:54)
[2019-06-11] MEDS ORDERED: DEXTROSE 50% WATER 50ML SYRINGE IV PRN (21:00)
[2019-06-11] MEDS ORDERED: INSULIN LISPRO (HIGH DOSE) 100 UNITS/ML SUBCUT SCH (21:00)
[2019-06-11] MEDS ORDERED: BLOOD SUGAR DIAGNOSTIC STRIP TEST SCH (21:00)
[2019-06-11] MEDS ORDERED: INSULIN GLARGINE UD 100 UNITS/ML SYR SUBCUT NR (23:54)
[2019-06-12] VITALS (8 sets, daily range): BP systolic 109–157; BP diastolic 57–86
[2019-06-12] MEDS: IPRATROPIUM BROMIDE (0.02%) 0.5MG/2.5ML NEB HHN SCH ×3 (01:23→21:03)
[2019-06-12] MEDS ORDERED: DILTIAZEM HCL 125 MG in DEXT 5% WATER 100 ML IV PRN (05:00)
[2019-06-12 06:05] LABS: HEMATOCRIT. 36.5 % (36.0-48.0); MEAN CORPUSCULAR HEMOGLOBIN 31.1 pg (28.0-32.0); MEAN CORPUSCULAR VOLUME 94.5 fL (81.0-99.0); MEAN PLATELET VOLUME 8.9 fl (7.4-10.4); PLATELET 195 x1000/uL (130-400); RED BLOOD CELL COUNT 3.86 mill/uL (4.2-5.4); RED CELL DISTRIBUTION WIDTH 15.2 % (11.6-14.6)
[2019-06-12 06:12] LABS: CHLORIDE 107 mEq/L (98-107)
[2019-06-12 06:18] LABS: PHOSPHORUS 2.5 mg/dL (2.5-4.9)
[2019-06-12 06:19] LABS: LDL CHOLESTEROL 73 mg/dL (5-100)
[2019-06-12 06:20] LABS: HDL CHOLESTEROL 24 mg/dL (40-59)
[2019-06-12] MEDS: INSULIN LISPRO (HIGH DOSE) 100 UNITS/ML SUBCUT SCH ×4 (07:10→22:08)
[2019-06-12] MEDS ORDERED: DEXTROSE 50% WATER 50ML SYRINGE IV PRN (07:15)
[2019-06-12 07:19] LABS: PLATELET ESTIMATE NORMAL
[2019-06-12] MEDS ORDERED: INSULIN GLARGINE UD 100 UNITS/ML SYR SUBCUT SCH ×2 (10:00→22:00)
[2019-06-12] MEDS: METHIMAZOLE 5MG TABLET PO SCH (10:15)
[2019-06-12] MEDS: ASPIRIN 81MG EC TABLET PO SCH (10:15)
[2019-06-12] MEDS: LEVETIRACETAM 500MG TABLET PO SCH ×2 (10:15→16:43)
[2019-06-12] MEDS: BLOOD SUGAR DIAGNOSTIC STRIP TEST SCH ×4 (11:00→21:00)
[2019-06-12] MEDS: DILTIAZEM HCL 60MG TABLET PO SCH ×3 (11:54→23:24)
[2019-06-12] MEDS ORDERED: INSULIN GLARGINE UD 100 UNITS/ML SYR SUBCUT NR (12:00)
[2019-06-12] MEDS ORDERED: CEFTRIAXONE 1 G PREMIX 50 ML IV SCH (12:00)
[2019-06-12] MEDS: INSULIN LISPRO 100 UNITS/ML SUBCUT SCH ×2 (12:59→16:42)
[2019-06-12] MEDS ORDERED: MAGNESIUM 4 G PREMIX 100 ML IV SCH (14:00)
[2019-06-12] MEDS: DILTIAZEM HCL 125 MG in DEXT 5% WATER 100 ML IV PRN (16:33)
[2019-06-12] MEDS: DIGOXIN 500MCG/2ML AMP IV SCH (17:27)
[2019-06-12] MEDS: ATORVASTATIN CALCIUM 20MG TABLET PO SCH (22:04)
[2019-06-12] MEDS: INSULIN GLARGINE UD 100 UNITS/ML SYR SUBCUT SCH (22:05)
[2019-06-13] VITALS (12 sets, daily range): BP systolic 123–165; BP diastolic 58–85
[2019-06-13] MEDS: DILTIAZEM HCL 125 MG in DEXT 5% WATER 100 ML IV PRN ×2 (00:39→09:53)
[2019-06-13] MEDS: IPRATROPIUM BROMIDE (0.02%) 0.5MG/2.5ML NEB HHN SCH ×4 (02:09→20:47)
[2019-06-13] MEDS: DILTIAZEM HCL 60MG TABLET PO SCH ×3 (06:21→18:06)
[2019-06-13] MEDS: INSULIN LISPRO 100 UNITS/ML SUBCUT SCH ×3 (06:22→18:04)
[2019-06-13] MEDS: INSULIN LISPRO (HIGH DOSE) 100 UNITS/ML SUBCUT SCH ×4 (06:23→21:27)
[2019-06-13] MEDS: BLOOD SUGAR DIAGNOSTIC STRIP TEST SCH ×4 (06:23→21:28)
[2019-06-13 07:42] LABS: BASOPHILS % 0.2 % (0.0-2.0); EOSINOPHILS % 0.9 % (0.0-5.0); HEMATOCRIT. 37.4 % (36.0-48.0); HEMOGLOBIN. 12.4 g/dL (12.0-16.0); LYMPHOCYTES % 10.4 % (20.0-50.0); MEAN CORPUSCULAR HEMOGLOBIN 31.3 pg (28.0-32.0); MEAN CORPUSCULAR VOLUME 94.3 fL (81.0-99.0); MEAN PLATELET VOLUME 9.1 fl (7.4-10.4); MONOCYTES % 10.5 % (2.0-8.0); PLATELET 222 x1000/uL (130-400); RED BLOOD CELL COUNT 3.97 mill/uL (4.2-5.4); RED CELL DISTRIBUTION WIDTH 14.9 % (11.6-14.6)
[2019-06-13] MEDS: LEVETIRACETAM 500MG TABLET PO SCH ×2 (08:15→18:05)
[2019-06-13] MEDS: METHIMAZOLE 5MG TABLET PO SCH (08:15)
[2019-06-13] MEDS: ASPIRIN 81MG EC TABLET PO SCH (08:15)
[2019-06-13] MEDS: INSULIN GLARGINE UD 100 UNITS/ML SYR SUBCUT SCH ×2 (11:11→23:09)
[2019-06-13] MEDS ORDERED: INSULIN REGULAR (HUMULIN R) 300UNITS/3ML SUBCUT SCH (12:30)
[2019-06-13] MEDS: CEFAZOLIN 1000MG PREMIX 50 ML IV SCH ×2 (15:00→23:58)
[2019-06-13] MEDS: DIGOXIN 500MCG/2ML AMP IV SCH (18:06)
[2019-06-13] MEDS: ATORVASTATIN CALCIUM 20MG TABLET PO SCH (21:27)
[2019-06-13] MEDS ORDERED: GUAIFENESIN-DM 200MG-20MG/10ML UDC PO PRN (22:30)
[2019-06-14] VITALS (12 sets, daily range): BP systolic 122–157; BP diastolic 58–81
[2019-06-14] MEDS: IPRATROPIUM BROMIDE (0.02%) 0.5MG/2.5ML NEB HHN SCH ×4 (01:09→21:26)
[2019-06-14] MEDS: DILTIAZEM HCL 125 MG in DEXT 5% WATER 100 ML IV PRN (01:37)
[2019-06-14] MEDS: CEFAZOLIN 1000MG PREMIX 50 ML IV SCH ×3 (06:16→23:46)
[2019-06-14] MEDS: DILTIAZEM HCL 60MG TABLET PO SCH ×5 (06:18→23:57)
[2019-06-14] MEDS: INSULIN LISPRO 100 UNITS/ML SUBCUT SCH ×3 (06:19→17:30)
[2019-06-14] MEDS: INSULIN LISPRO (HIGH DOSE) 100 UNITS/ML SUBCUT SCH ×4 (06:20→21:46)
[2019-06-14] MEDS: BLOOD SUGAR DIAGNOSTIC STRIP TEST SCH ×4 (06:21→21:45)
[2019-06-14] MEDS: METHIMAZOLE 5MG TABLET PO SCH (09:28)
[2019-06-14] MEDS: LEVETIRACETAM 500MG TABLET PO SCH ×2 (09:28→17:49)
[2019-06-14] MEDS: ASPIRIN 81MG EC TABLET PO SCH (09:28)
[2019-06-14] MEDS: INSULIN GLARGINE UD 100 UNITS/ML SYR SUBCUT SCH ×2 (09:36→21:47)
[2019-06-14] MEDS: DIGOXIN 500MCG/2ML AMP IV SCH (17:32)
[2019-06-14] MEDS: NYSTATIN POWDER 15GM TOP SCH (21:45)
[2019-06-14] MEDS: ATORVASTATIN CALCIUM 20MG TABLET PO SCH (21:45)
[2019-06-15] VITALS (13 sets, daily range): BP systolic 127–154; BP diastolic 62–132
[2019-06-15] MEDS: IPRATROPIUM BROMIDE (0.02%) 0.5MG/2.5ML NEB HHN SCH ×4 (01:34→21:07)
[2019-06-15] MEDS: INSULIN LISPRO 100 UNITS/ML SUBCUT SCH ×3 (05:59→16:40)
[2019-06-15] MEDS: CEFAZOLIN 1000MG PREMIX 50 ML IV SCH ×3 (06:12→23:18)
[2019-06-15] MEDS: DILTIAZEM HCL 60MG TABLET PO SCH ×4 (06:12→23:14)
[2019-06-15] MEDS: BLOOD SUGAR DIAGNOSTIC STRIP TEST SCH ×4 (06:13→22:58)
[2019-06-15 06:20] LABS: BASOPHILS % 0.4 % (0.0-2.0); EOSINOPHILS % 2.4 % (0.0-5.0); HEMATOCRIT. 36.8 % (36.0-48.0); HEMOGLOBIN. 12.4 g/dL (12.0-16.0); LYMPHOCYTES % 18.5 % (20.0-50.0); MEAN CORPUSCULAR HEMOGLOBIN 31.3 pg (28.0-32.0); MEAN CORPUSCULAR VOLUME 92.6 fL (81.0-99.0); MEAN PLATELET VOLUME 9.1 fl (7.4-10.4); MONOCYTES % 9.6 % (2.0-8.0); NEUTROPHILS % 69.1 % (40.0-76.0); PLATELET 212 x1000/uL (130-400); RED BLOOD CELL COUNT 3.97 mill/uL (4.2-5.4); RED CELL DISTRIBUTION WIDTH 14.6 % (11.6-14.6)
[2019-06-15 06:23] LABS: CHLORIDE 104 mEq/L (98-107)
[2019-06-15] MEDS: INSULIN LISPRO (HIGH DOSE) 100 UNITS/ML SUBCUT SCH ×4 (07:20→23:16)
[2019-06-15] MEDS ORDERED: IOHEXOL-300 100 ML BOTTLE ONE (08:19)
[2019-06-15] MEDS ORDERED: SODIUM BICARBONATE 4% (2.4MEQ) 5ML VIAL IV ONE (08:19)
[2019-06-15] MEDS ORDERED: LIDOCAINE HCL 1% 20ML VIAL (Pyxis) INJ ONE (08:19)
[2019-06-15] MEDS: NYSTATIN POWDER 15GM TOP SCH ×3 (08:20→16:40)
[2019-06-15] MEDS: ASPIRIN 81MG EC TABLET PO SCH (11:42)
[2019-06-15] MEDS: METHIMAZOLE 5MG TABLET PO SCH (11:42)
[2019-06-15] MEDS: LEVETIRACETAM 500MG TABLET PO SCH ×2 (11:42→16:40)
[2019-06-15] MEDS: INSULIN GLARGINE UD 100 UNITS/ML SYR SUBCUT SCH ×2 (11:42→23:17)
[2019-06-15] MEDS: DIGOXIN 500MCG/2ML AMP IV SCH (17:31)
[2019-06-15] MEDS: ATORVASTATIN CALCIUM 20MG TABLET PO SCH (23:13)
[2019-06-16] VITALS (11 sets, daily range): BP systolic 111–158; BP diastolic 61–79
[2019-06-16] MEDS: IPRATROPIUM BROMIDE (0.02%) 0.5MG/2.5ML NEB HHN SCH ×3 (03:04→14:18)
[2019-06-16] MEDS: DILTIAZEM HCL 60MG TABLET PO SCH ×3 (05:17→17:48)
[2019-06-16] MEDS: CEFAZOLIN 1000MG PREMIX 50 ML IV SCH ×2 (06:13→15:04)
[2019-06-16] MEDS: BLOOD SUGAR DIAGNOSTIC STRIP TEST SCH ×3 (06:17→17:20)
[2019-06-16 06:24] LABS: HEMATOCRIT. 38.2 % (36.0-48.0); HEMOGLOBIN. 13.3 g/dL (12.0-16.0); MEAN CORPUSCULAR HEMOGLOBIN 32.4 pg (28.0-32.0); MEAN CORPUSCULAR VOLUME 92.9 fL (81.0-99.0); MEAN PLATELET VOLUME 9.2 fl (7.4-10.4); PLATELET 259 x1000/uL (130-400); RED BLOOD CELL COUNT 4.11 mill/uL (4.2-5.4); RED CELL DISTRIBUTION WIDTH 14.8 % (11.6-14.6)
[2019-06-16 06:31] LABS: CHLORIDE 104 mEq/L (98-107)
[2019-06-16] MEDS: INSULIN LISPRO 100 UNITS/ML SUBCUT SCH ×3 (06:50→17:46)
[2019-06-16] MEDS: INSULIN LISPRO (HIGH DOSE) 100 UNITS/ML SUBCUT SCH ×3 (07:20→17:47)
[2019-06-16] MEDS: NYSTATIN POWDER 15GM TOP SCH ×3 (09:00→17:49)
[2019-06-16] MEDS ORDERED: LIDOCAINE HCL 1% 20ML VIAL (Pyxis) INJ ONE (09:09)
[2019-06-16] MEDS ORDERED: SODIUM BICARBONATE 4% (2.4MEQ) 5ML VIAL IV ONE (09:09)
[2019-06-16] MEDS ORDERED: IOHEXOL-300 50 ML BOTTLE IV ONE (09:09)
[2019-06-16] MEDS: LEVETIRACETAM 500MG TABLET PO SCH ×2 (11:41→17:48)
[2019-06-16] MEDS: ASPIRIN 81MG EC TABLET PO SCH (11:41)
[2019-06-16] MEDS: INSULIN GLARGINE UD 100 UNITS/ML SYR SUBCUT SCH (11:42)
[2019-06-16] MEDS: METHIMAZOLE 5MG TABLET PO SCH (11:46)
[2019-06-16 12:07] LABS: PLATELET ESTIMATE NORMAL
[2019-06-16] MEDS: DIGOXIN 500MCG/2ML AMP IV SCH (17:48)
[2019-06-16] MEDS ORDERED: CEPHALEXIN 250MG CAPSULE PO SCH (18:00)
== END 2019-06-16 19:33 | DRG 853 ==
LOC: ER 23:30 → 5WST 06-11 04:36 → 3WST 06-11 04:36 → UNDOADMIN 06-11 04:36 → EDBEDREQTM 06-11 04:39 → EDBEDREQSVC 06-11 04:39 → EDBEDREQ 06-11 04:39 → ENRESERV 06-11 07:33 → EDBEDREQ 06-11 09:07 → EDBEDREQTM 06-11 09:07 → ENRESERV 06-12 08:49 → CANRESERV 06-12 08:49 → ENRESERV 06-12 08:53
PROVIDERS: ADMIT Internal Medicine; ATTEND Internal Medicine
PROC: 5A09457 Assistance with Respiratory Ventilation, 24-96 Consecutive Hours, Continuous Positive Airway Pressure (ICD-10-PCS; 2019-06-10)
PROC: 06H03DZ Insertion of Intraluminal Device into Inferior Vena Cava, Percutaneous Approach (ICD-10-PCS; principal; 2019-06-16)
PROC: B5191ZZ Fluoroscopy of Inferior Vena Cava using Low Osmolar Contrast (ICD-10-PCS; 2019-06-16)
DX: A41.51 Sepsis due to Escherichia coli [E. coli] (principal); I50.33 Acute on chronic diastolic (congestive) heart failure; J96.00 Acute respiratory failure, unspecified whether with hypoxia or hypercapnia; N39.0 Urinary tract infection, site not specified; E87.2 Acidosis; R65.20 Severe sepsis without septic shock; B96.89 Other specified bacterial agents as the cause of diseases classified elsewhere; E03.9 Hypothyroidism, unspecified; E11.65 Type 2 diabetes mellitus with hyperglycemia; E78.5 Hyperlipidemia, unspecified; I11.0 Hypertensive heart disease with heart failure; I48.91 Unspecified atrial fibrillation; R62.7 Adult failure to thrive; L89.159 Pressure ulcer of sacral region, unspecified stage; R80.9 Proteinuria, unspecified; R31.9 Hematuria, unspecified; Z79.4 Long term (current) use of insulin; Z86.718 Personal history of other venous thrombosis and embolism; Z86.73 Personal history of transient ischemic attack (TIA), and cerebral infarction without residual deficits; Z91.14 Patient's other noncompliance with medication regimen; Z95.828 Presence of other vascular implants and grafts; Z68.33 Body mass index [BMI] 33.0-33.9, adult; Z98.2 Presence of cerebrospinal fluid drainage device; Z79.899 Other long term (current) drug therapy
CPT/HCPCS: 36415; 37191; 71045; 80048; 80061; 82010; 82962; 83036; 83605; 83735; 83880; 84100; 84134; 84443; 84484; 87077; 87186; 92610; 93005; 93970; 94640; 94660; 96372; 96375; 99291; A6261; C1769; C1880; J0690; J0696; J1160; J1644; J1815; J3475; J3490; J7060; Q9967

== ENCOUNTER 2019-09-25 17:53 | Inpatient (IN) | payer MEDICARE, MEDICAID ==
[~2019-09-25] VITALS: Ht 167.6 cm; Wt 70.3 kg
[~2019-09-25 17:53] MED LIST changes: -ASPI-1393 PO; +ASPI-1497 PO; +CEPH500C2 MT; +DILT60TA3 PO; -METO-539 PO; +MULT-230 MT; +SENN-22 MT; +SIMV-43 PO; -SIMV20TA6 PO
[2019-09-25] MEDS ORDERED: SODIUM CHLORIDE 0.9% 500 ML IV ONE (18:45)
[2019-09-25 19:17] LABS: BG BASE EXCESS -2.4 mmol/L (-2.0-2.0); BG CARBOXYHEMOGLOBIN 0.3 % (0.5-1.5); BG DEOXYHEMOGLOBIN 0.7 % (0.0-5.0); BG FRACTION INSPIRED OXYGEN 100; BG HCO3 ACT 20.9 mmol/L (22.0-26.0); BG METHEMOGLOBIN 0.2 % (0.0-1.5); BG OXYGEN SATURATION 99.3 % (92.0-98.5); BG OXYHEMOGLOBIN 98.8 % (94.0-97.0); BG PCO2 30.8 mmHg (35.0-45.0); BG PH 7.449 (7.350-7.450); BG PO2 385.9 mmHg (75.0-100.0); BG SAMPLE SITE RIGHT RADIAL; BG TOTAL HEMOGLOBIN 10.9 g/dL (12.0-18.0); BG VENT MODE MASK - NRB
[2019-09-25 19:26] LABS: CHLORIDE 110 mEq/L (98-107)
[2019-09-25 19:32] LABS: BASOPHILS % 0.6 % (0.0-2.0); EOSINOPHILS % 1.4 % (0.0-5.0); HEMATOCRIT. 33.2 % (36.0-48.0); HEMOGLOBIN. 11.2 g/dL (12.0-16.0); LYMPHOCYTES % 19.4 % (20.0-50.0); MEAN CORPUSCULAR VOLUME 94.7 fL (81.0-99.0); MEAN PLATELET VOLUME 7.8 fl (7.4-10.4); MONOCYTES % 4.8 % (2.0-8.0); NEUTROPHILS % 73.8 % (40.0-76.0); PLATELET 419 x1000/uL (130-400); RED BLOOD CELL COUNT 3.51 mill/uL (4.2-5.4)
[2019-09-25 20:56] LABS: HEMOGLOBIN 11.2 g/dL (12.0-16.0)
[2019-09-25] MEDS ORDERED: FAMOTIDINE 20MG/2ML VIAL IV ONE (22:00)
[2019-09-25] MEDS ORDERED: ONDANSETRON HCL 4MG/2ML INJ IV ONE (22:00)
[2019-09-26 03:07] VITALS: BP 133/63
[2019-09-26 04:00] VITALS: BP 133/63
[2019-09-26] MEDS ORDERED: CLONIDINE 0.1MG TABLET PO PRN (05:15)
[2019-09-26] MEDS ORDERED: DEXTROSE 50% WATER 50ML SYRINGE IV PRN (05:30)
[2019-09-26] MEDS: BLOOD SUGAR DIAGNOSTIC STRIP TEST SCH ×4 (05:59→20:12)
[2019-09-26] MEDS: INSULIN LISPRO 100 UNITS/ML SUBCUT SCH ×4 (06:39→20:23)
[2019-09-26 07:52] VITALS: BP 110/59
[2019-09-26 09:06] LABS: BASOPHILS % 0.6 % (0.0-2.0); EOSINOPHILS % 1.6 % (0.0-5.0); HEMATOCRIT. 32.6 % (36.0-48.0); HEMOGLOBIN. 11.1 g/dL (12.0-16.0); LYMPHOCYTES % 32.4 % (20.0-50.0); MEAN CORPUSCULAR HEMOGLOBIN 32.3 pg (28.0-32.0); MEAN PLATELET VOLUME 7.5 fl (7.4-10.4); MONOCYTES % 5.5 % (2.0-8.0); NEUTROPHILS % 59.9 % (40.0-76.0); PLATELET 380 x1000/uL (130-400); RED BLOOD CELL COUNT 3.43 mill/uL (4.2-5.4); RED CELL DISTRIBUTION WIDTH 13.3 % (11.6-14.6)
[2019-09-26 09:13] LABS: CHLORIDE 114 mEq/L (98-107)
[2019-09-26] MEDS ORDERED: DIATR MEGLU/DIATRIZOATE SOLN 30ML PO SCH (09:15)
[2019-09-26] MEDS: PANTOPRAZOLE SODIUM 40 MG/VIAL IV SCH (09:20)
[2019-09-26 12:00] VITALS: BP 125/67
[2019-09-26] MEDS: METHIMAZOLE 5MG TABLET PO SCH (12:22)
[2019-09-26] MEDS: DILTIAZEM HCL 60MG TABLET PO SCH ×2 (12:22→18:21)
[2019-09-26] MEDS: LEVETIRACETAM 500MG TABLET PO SCH ×2 (12:23→18:21)
[2019-09-26] MEDS: DIATR MEGLU/DIATRIZOATE SOLN 30ML PO SCH ×2 (13:03→14:04)
[2019-09-26 16:00] VITALS: BP 129/68
[2019-09-26 19:26] LABS: BASOPHILS % 0.8 % (0.0-2.0); EOSINOPHILS % 1.6 % (0.0-5.0); HEMATOCRIT. 27.5 % (36.0-48.0); HEMOGLOBIN. 9.4 g/dL (12.0-16.0); LYMPHOCYTES % 32.1 % (20.0-50.0); MEAN CORPUSCULAR HEMOGLOBIN 32.4 pg (28.0-32.0); MEAN CORPUSCULAR VOLUME 94.9 fL (81.0-99.0); MEAN PLATELET VOLUME 7.9 fl (7.4-10.4); MONOCYTES % 4.5 % (2.0-8.0); PLATELET 340 x1000/uL (130-400); RED BLOOD CELL COUNT 2.89 mill/uL (4.2-5.4); RED CELL DISTRIBUTION WIDTH 12.7 % (11.6-14.6)
[2019-09-26 20:00] VITALS: BP 123/73
[2019-09-26] MEDS: ATORVASTATIN CALCIUM 20MG TABLET PO SCH (20:12)
[2019-09-26] MEDS ORDERED: IOHEXOL-300 100 ML BOTTLE ONE (21:47)
[2019-09-27] VITALS: BP 114/62
[2019-09-27 00:01] LABS: BASOPHILS % 0.6 % (0.0-2.0); EOSINOPHILS % 1.9 % (0.0-5.0); HEMATOCRIT. 26.6 % (36.0-48.0); HEMOGLOBIN. 9.3 g/dL (12.0-16.0); LYMPHOCYTES % 35.1 % (20.0-50.0); MEAN CORPUSCULAR HEMOGLOBIN 32.8 pg (28.0-32.0); MEAN PLATELET VOLUME 7.6 fl (7.4-10.4); MONOCYTES % 5.6 % (2.0-8.0); NEUTROPHILS % 56.8 % (40.0-76.0); PLATELET 328 x1000/uL (130-400); RED BLOOD CELL COUNT 2.83 mill/uL (4.2-5.4); RED CELL DISTRIBUTION WIDTH 12.5 % (11.6-14.6)
[2019-09-27] MEDS: DILTIAZEM HCL 60MG TABLET PO SCH ×4 (00:38→18:14)
[2019-09-27 04:00] VITALS: BP 119/62
[2019-09-27] MEDS: BLOOD SUGAR DIAGNOSTIC STRIP TEST SCH ×4 (05:53→21:36)
[2019-09-27] MEDS: INSULIN LISPRO 100 UNITS/ML SUBCUT SCH ×4 (06:17→22:01)
[2019-09-27 07:22] LABS: CHLORIDE 110 mEq/L (98-107)
[2019-09-27 08:00] VITALS: BP 115/54
[2019-09-27] MEDS: LEVETIRACETAM 500MG TABLET PO SCH ×2 (09:50→17:26)
[2019-09-27] MEDS: METHIMAZOLE 5MG TABLET PO SCH (09:50)
[2019-09-27] MEDS: PANTOPRAZOLE SODIUM 40 MG/VIAL IV SCH (09:50)
[2019-09-27 11:57] VITALS: BP 127/95
[2019-09-27] MEDS: SORBITOL 70% SOLN 30ML PO SCH (15:24)
[2019-09-27] MEDS: DOCUSATE SODIUM 250MG CAPSULE PO SCH ×2 (15:24→21:36)
[2019-09-27 16:00] VITALS: BP 143/71
[2019-09-27 16:51] LABS: HEMATOCRIT 27.1 % (36.0-48.0); HEMOGLOBIN 9.2 g/dL (12.0-16.0); MEAN CORPUSCULAR HEMOGLOBIN 32.2 pg (28.0-32.0); MEAN CORPUSCULAR VOLUME 94.4 fL (81.0-99.0); PLATELET 369 x1000/uL (130-400); RED BLOOD CELL COUNT 2.87 mill/uL (4.2-5.4); RED CELL DISTRIBUTION WIDTH 12.9 % (11.6-14.6)
[2019-09-27 20:00] VITALS: BP 116/80
[2019-09-27] MEDS: ATORVASTATIN CALCIUM 20MG TABLET PO SCH (21:36)
[2019-09-28] VITALS: BP 120/67
[2019-09-28] MEDS: DILTIAZEM HCL 60MG TABLET PO SCH ×4 (00:47→18:23)
[2019-09-28 04:00] VITALS: BP 123/68
[2019-09-28 05:12] LABS: BASOPHILS % 0.8 % (0.0-2.0); EOSINOPHILS % 2.3 % (0.0-5.0); HEMOGLOBIN. 8.7 g/dL (12.0-16.0); LYMPHOCYTES % 30.8 % (20.0-50.0); MEAN CORPUSCULAR HEMOGLOBIN 33.1 pg (28.0-32.0); MEAN CORPUSCULAR VOLUME 94.6 fL (81.0-99.0); MEAN PLATELET VOLUME 7.9 fl (7.4-10.4); MONOCYTES % 4.7 % (2.0-8.0); NEUTROPHILS % 61.4 % (40.0-76.0); PLATELET 322 x1000/uL (130-400); RED BLOOD CELL COUNT 2.64 mill/uL (4.2-5.4); RED CELL DISTRIBUTION WIDTH 13.2 % (11.6-14.6)
[2019-09-28 05:40] LABS: CHLORIDE 109 mEq/L (98-107)
[2019-09-28] MEDS: PANTOPRAZOLE 40MG DR TABLET PO SCH (06:17)
[2019-09-28] MEDS: BLOOD SUGAR DIAGNOSTIC STRIP TEST SCH ×4 (06:17→21:23)
[2019-09-28] MEDS: INSULIN LISPRO 100 UNITS/ML SUBCUT SCH ×4 (06:24→21:36)
[2019-09-28 08:00] VITALS: BP 121/60
[2019-09-28] MEDS: DOCUSATE SODIUM 250MG CAPSULE PO SCH ×2 (09:53→18:23)
[2019-09-28] MEDS: LEVETIRACETAM 500MG TABLET PO SCH ×2 (09:53→18:24)
[2019-09-28] MEDS: METHIMAZOLE 5MG TABLET PO SCH (09:54)
[2019-09-28] MEDS: SORBITOL 70% SOLN 30ML PO SCH ×2 (09:54→22:26)
[2019-09-28 12:00] VITALS: BP 120/73
[2019-09-28 16:00] VITALS: BP 121/64
[2019-09-28] MEDS ORDERED: BISACODYL 5MG TABLET PO NR (16:15)
[2019-09-28] MEDS ORDERED: METOCLOPRAMIDE HCL 10MG/2ML VIAL IV NR (16:15)
[2019-09-28] MEDS ORDERED: SORBITOL 70% SOLN 30ML PO SCH (17:30)
[2019-09-28 20:00] VITALS: BP 136/64
[2019-09-28] MEDS: BISACODYL 5MG TABLET PO SCH (21:27)
[2019-09-28] MEDS: ATORVASTATIN CALCIUM 20MG TABLET PO SCH (21:27)
[2019-09-28] MEDS: METOCLOPRAMIDE HCL 10MG/2ML VIAL IV SCH (21:30)
[2019-09-29] VITALS: BP 137/83
[2019-09-29] MEDS: DILTIAZEM HCL 60MG TABLET PO SCH ×4 (00:21→18:26)
[2019-09-29] MEDS: METOCLOPRAMIDE HCL 10MG/2ML VIAL IV SCH ×3 (01:58→12:03)
[2019-09-29] MEDS: BISACODYL 5MG TABLET PO SCH ×3 (01:58→12:02)
[2019-09-29] MEDS: SORBITOL 70% SOLN 30ML PO SCH ×4 (03:11→13:00)
[2019-09-29 04:00] VITALS: BP 144/76
[2019-09-29] MEDS: BLOOD SUGAR DIAGNOSTIC STRIP TEST SCH ×4 (06:05→21:00)
[2019-09-29] MEDS: INSULIN LISPRO 100 UNITS/ML SUBCUT SCH ×4 (06:40→22:34)
[2019-09-29] MEDS: PANTOPRAZOLE 40MG DR TABLET PO SCH (06:41)
[2019-09-29 07:08] LABS: BASOPHILS % 0.3 % (0.0-2.0); HEMATOCRIT. 31.5 % (36.0-48.0); HEMOGLOBIN. 10.5 g/dL (12.0-16.0); LYMPHOCYTES % 9.2 % (20.0-50.0); MEAN CORPUSCULAR HEMOGLOBIN 31.9 pg (28.0-32.0); MEAN CORPUSCULAR VOLUME 95.3 fL (81.0-99.0); MEAN PLATELET VOLUME 7.8 fl (7.4-10.4); MONOCYTES % 3.5 % (2.0-8.0); PLATELET 442 x1000/uL (130-400); RED CELL DISTRIBUTION WIDTH 13.1 % (11.6-14.6)
[2019-09-29 08:00] VITALS: BP 138/81
[2019-09-29] MEDS: DOCUSATE SODIUM 250MG CAPSULE PO SCH ×2 (08:24→18:25)
[2019-09-29] MEDS: LEVETIRACETAM 500MG TABLET PO SCH ×2 (10:41→18:26)
[2019-09-29] MEDS: METHIMAZOLE 5MG TABLET PO SCH (10:41)
[2019-09-29] MEDS: INSULIN GLARGINE UD 100 UNITS/ML SYR SUBCUT SCH ×2 (10:50→22:34)
[2019-09-29 12:00] VITALS: BP 165/99
[2019-09-29] MEDS ORDERED: MIDAZOLAM HCL 2 MG/2 ML VIAL ONE (13:38)
[2019-09-29] MEDS ORDERED: PROPOFOL 200MG/20ML VIAL IV ONE (13:38)
[2019-09-29] MEDS: SODIUM CHLORIDE 0.45% 1,000 ML IV SCH (18:45)
[2019-09-29 20:00] VITALS: BP 146/80
[2019-09-29] MEDS: ATORVASTATIN CALCIUM 20MG TABLET PO SCH (22:21)
[2019-09-30] VITALS: BP 131/75
[2019-09-30] MEDS: DILTIAZEM HCL 60MG TABLET PO SCH ×4 (00:11→17:09)
[2019-09-30 04:00] VITALS: BP 106/55
[2019-09-30] MEDS: PANTOPRAZOLE 40MG DR TABLET PO SCH (06:17)
[2019-09-30] MEDS: INSULIN LISPRO 100 UNITS/ML SUBCUT SCH ×4 (06:17→21:00)
[2019-09-30] MEDS: BLOOD SUGAR DIAGNOSTIC STRIP TEST SCH ×4 (06:17→21:00)
[2019-09-30 07:03] LABS: BASOPHILS % 0.7 % (0.0-2.0); EOSINOPHILS % 1.4 % (0.0-5.0); HEMATOCRIT. 30.6 % (36.0-48.0); HEMOGLOBIN. 10.3 g/dL (12.0-16.0); LYMPHOCYTES % 21.2 % (20.0-50.0); MEAN CORPUSCULAR HEMOGLOBIN 32.2 pg (28.0-32.0); MEAN CORPUSCULAR VOLUME 95.8 fL (81.0-99.0); MEAN PLATELET VOLUME 7.9 fl (7.4-10.4); MONOCYTES % 5.9 % (2.0-8.0); NEUTROPHILS % 70.8 % (40.0-76.0); PLATELET 417 x1000/uL (130-400); RED BLOOD CELL COUNT 3.19 mill/uL (4.2-5.4); RED CELL DISTRIBUTION WIDTH 12.9 % (11.6-14.6)
[2019-09-30 08:00] VITALS: BP_SYST 107; BP_DIAS 59; BP_DIAS 89
[2019-09-30] MEDS ORDERED: POTASSIUM CHLORIDE 20MEQ TABLET SR PO NR (09:30)
[2019-09-30] MEDS: METHIMAZOLE 5MG TABLET PO SCH (09:54)
[2019-09-30] MEDS: DOCUSATE SODIUM 250MG CAPSULE PO SCH ×2 (09:54→17:14)
[2019-09-30] MEDS: LEVETIRACETAM 500MG TABLET PO SCH ×2 (09:54→17:08)
[2019-09-30] MEDS: INSULIN GLARGINE UD 100 UNITS/ML SYR SUBCUT SCH ×2 (09:57→22:30)
[2019-09-30] MEDS: SODIUM CHLORIDE 0.45% 1,000 ML IV SCH (10:01)
[2019-09-30 12:09] VITALS: BP 120/66
[2019-09-30] MEDS ORDERED: LORAZEPAM 2MG/ML CPJ IV PRN (14:45)
[2019-09-30 16:00] VITALS: BP 115/58
[2019-09-30 19:36] LABS: CREATINE KINASE 26 IU/L (26-192)
[2019-09-30 20:00] VITALS: BP 106/68
[2019-09-30] MEDS: ATORVASTATIN CALCIUM 20MG TABLET PO SCH (22:29)
[2019-10-01] VITALS: BP 104/58
[2019-10-01 04:00] VITALS: BP 107/52
[2019-10-01] MEDS: BLOOD SUGAR DIAGNOSTIC STRIP TEST SCH ×4 (06:01→21:58)
[2019-10-01] MEDS: PANTOPRAZOLE 40MG DR TABLET PO SCH (06:04)
[2019-10-01] MEDS: SODIUM CHLORIDE 0.45% 1,000 ML IV SCH (06:05)
[2019-10-01] MEDS: DILTIAZEM HCL 60MG TABLET PO SCH ×5 (06:05→23:37)
[2019-10-01 06:39] LABS: BASOPHILS % 0.6 % (0.0-2.0); EOSINOPHILS % 1.8 % (0.0-5.0); HEMATOCRIT. 22.9 % (36.0-48.0); HEMOGLOBIN. 8.1 g/dL (12.0-16.0); LYMPHOCYTES % 21.6 % (20.0-50.0); MEAN CORPUSCULAR VOLUME 93.7 fL (81.0-99.0); MEAN PLATELET VOLUME 7.4 fl (7.4-10.4); MONOCYTES % 4.5 % (2.0-8.0); NEUTROPHILS % 71.5 % (40.0-76.0); PLATELET 359 x1000/uL (130-400); RED BLOOD CELL COUNT 2.45 mill/uL (4.2-5.4)
[2019-10-01] MEDS: INSULIN LISPRO 100 UNITS/ML SUBCUT SCH ×4 (07:15→22:10)
[2019-10-01 07:52] VITALS: BP 104/65
[2019-10-01 08:00] VITALS: BP 104/65
[2019-10-01] MEDS: DOCUSATE SODIUM 250MG CAPSULE PO SCH ×2 (09:37→17:17)
[2019-10-01] MEDS: METHIMAZOLE 5MG TABLET PO SCH (09:37)
[2019-10-01] MEDS: LEVETIRACETAM 500MG TABLET PO SCH ×2 (09:37→17:17)
[2019-10-01] MEDS: INSULIN GLARGINE UD 100 UNITS/ML SYR SUBCUT SCH ×2 (09:39→22:10)
[2019-10-01 14:46] LABS: CLARITY URINE TURBID (CLEAR); COLOR URINE YELLOW (YELLOW); KETONES URINE TRACE (NEGATIVE); LEUKOCYTE ESTERASE URINE 3+ (NEGATIVE); NITRITE URINE NEGATIVE (NEGATIVE); OCCULT BLOOD URINE 2+ (NEGATIVE); PROTEIN URINE 3+ (NEGATIVE); SPECIFIC GRAVITY URINE 1.016 (1.005-1.030); UROBILINOGEN URINE 0.2 E.U./dL (0.2-1.0)
[2019-10-01 16:00] VITALS: BP 106/60
[2019-10-01] MEDS ORDERED: METOCLOPRAMIDE HCL 10MG/2ML VIAL IV ONE ×2 (18:00→22:00)
[2019-10-01] MEDS ORDERED: SORBITOL 70% SOLN 30ML PO ONE ×2 (18:00→22:00)
[2019-10-01 20:00] VITALS: BP 110/55
[2019-10-01 21:23] LABS: HEMATOCRIT 29.1 % (36.0-48.0); HEMOGLOBIN 9.9 g/dL (12.0-16.0)
[2019-10-01] MEDS: ATORVASTATIN CALCIUM 20MG TABLET PO SCH (21:58)
[2019-10-02] VITALS: BP 128/66
[2019-10-02 00:45] LABS: HEMATOCRIT 31.6 % (36.0-48.0); HEMOGLOBIN 10.7 g/dL (12.0-16.0)
[2019-10-02] MEDS: SODIUM CHLORIDE 0.45% 1,000 ML IV SCH (03:05)
[2019-10-02 04:00] VITALS: BP 126/70
[2019-10-02] MEDS: BLOOD SUGAR DIAGNOSTIC STRIP TEST SCH ×4 (06:24→21:00)
[2019-10-02] MEDS: PANTOPRAZOLE 40MG DR TABLET PO SCH (06:24)
[2019-10-02] MEDS: DILTIAZEM HCL 60MG TABLET PO SCH ×3 (06:26→17:11)
[2019-10-02 06:29] LABS: BASOPHILS % 0.5 % (0.0-2.0); EOSINOPHILS % 1.5 % (0.0-5.0); HEMATOCRIT. 29.8 % (36.0-48.0); LYMPHOCYTES % 23.7 % (20.0-50.0); MEAN CORPUSCULAR HEMOGLOBIN 32.2 pg (28.0-32.0); MEAN CORPUSCULAR VOLUME 95.8 fL (81.0-99.0); MEAN PLATELET VOLUME 7.7 fl (7.4-10.4); MONOCYTES % 6.1 % (2.0-8.0); NEUTROPHILS % 68.2 % (40.0-76.0); PLATELET 426 x1000/uL (130-400); RED BLOOD CELL COUNT 3.11 mill/uL (4.2-5.4); RED CELL DISTRIBUTION WIDTH 13.4 % (11.6-14.6)
[2019-10-02] MEDS ORDERED: METOCLOPRAMIDE HCL 10MG/2ML VIAL IV ONE (07:00)
[2019-10-02] MEDS ORDERED: SORBITOL 70% SOLN 30ML PO ONE (07:00)
[2019-10-02] MEDS: INSULIN LISPRO 100 UNITS/ML SUBCUT SCH ×4 (07:02→21:00)
[2019-10-02 08:05] VITALS: BP 139/75
[2019-10-02] MEDS: DOCUSATE SODIUM 250MG CAPSULE PO SCH ×2 (08:54→17:10)
[2019-10-02] MEDS: LEVETIRACETAM 500MG TABLET PO SCH ×2 (08:54→17:10)
[2019-10-02] MEDS: METHIMAZOLE 5MG TABLET PO SCH (08:55)
[2019-10-02] MEDS ORDERED: POTASSIUM CHLORIDE 20MEQ/PACKET PO SCH (09:00)
[2019-10-02] MEDS ORDERED: DEXTROSE 5% WATER 1,000 ML IV SCH (09:45)
[2019-10-02] MEDS: INSULIN GLARGINE UD 100 UNITS/ML SYR SUBCUT SCH ×2 (11:46→22:53)
[2019-10-02 12:00] VITALS: BP 134/64
[2019-10-02] MEDS ORDERED: MIDAZOLAM HCL 5 MG/5 ML VIAL IV PRN (13:43)
[2019-10-02] MEDS ORDERED: FENTANYL CITRATE/PF 50MCG/ML 2ML VIAL IV PRN (13:44)
[2019-10-02] MEDS ORDERED: FENTANYL CITRATE/PF 50MCG/ML 2ML VIAL ONE (13:46)
[2019-10-02] MEDS ORDERED: MIDAZOLAM HCL 5 MG/5 ML VIAL ONE (13:46)
[2019-10-02 16:00] VITALS: BP 119/67
[2019-10-02] MEDS: CEFEPIME 1,000 MG in DEXTROSE 5% WATER 50 ML IV SCH (17:10)
[2019-10-02 20:00] VITALS: BP 146/59
[2019-10-02] MEDS: ATORVASTATIN CALCIUM 20MG TABLET PO SCH (22:46)
[2019-10-03] VITALS: BP 107/61
[2019-10-03 04:00] VITALS: BP 114/59
[2019-10-03] MEDS: CEFEPIME 1,000 MG in DEXTROSE 5% WATER 50 ML IV SCH ×2 (06:23→18:27)
[2019-10-03] MEDS: DILTIAZEM HCL 60MG TABLET PO SCH ×4 (06:39→18:27)
[2019-10-03] MEDS: BLOOD SUGAR DIAGNOSTIC STRIP TEST SCH ×3 (06:58→16:45)
[2019-10-03] MEDS: PANTOPRAZOLE 40MG DR TABLET PO SCH (07:00)
[2019-10-03] MEDS: INSULIN LISPRO 100 UNITS/ML SUBCUT SCH ×3 (07:01→17:15)
[2019-10-03 07:15] LABS: PHOSPHORUS 3.1 mg/dL (2.5-4.9)
[2019-10-03 08:00] VITALS: BP 118/63
[2019-10-03 08:38] LABS: BASOPHILS % 0.5 % (0.0-2.0); EOSINOPHILS % 2.6 % (0.0-5.0); HEMOGLOBIN. 10.1 g/dL (12.0-16.0); LYMPHOCYTES % 23.9 % (20.0-50.0); MEAN CORPUSCULAR HEMOGLOBIN 32.2 pg (28.0-32.0); MONOCYTES % 5.5 % (2.0-8.0); NEUTROPHILS % 67.5 % (40.0-76.0); RED BLOOD CELL COUNT 3.13 mill/uL (4.2-5.4); RED CELL DISTRIBUTION WIDTH 13.4 % (11.6-14.6)
[2019-10-03] MEDS: DOCUSATE SODIUM 250MG CAPSULE PO SCH ×2 (09:00→18:26)
[2019-10-03] MEDS: LEVETIRACETAM 500MG TABLET PO SCH ×2 (11:31→18:27)
[2019-10-03] MEDS: METHIMAZOLE 5MG TABLET PO SCH (11:31)
[2019-10-03] MEDS: INSULIN GLARGINE UD 100 UNITS/ML SYR SUBCUT SCH (11:36)
[2019-10-03 12:00] VITALS: BP 106/68
[2019-10-03] MEDS ORDERED: LEVO500T2 MT (12:35)
[2019-10-03 13:55] LABS: PLATELET 351 x1000/uL (130-400)
[2019-10-03 18:09] VITALS: BP 109/66
== END 2019-10-03 18:50 | disposition home or self-care (01) | DRG 377 ==
LOC: ER 17:53 → 5WST 23:45 → EDBEDREQ 23:50 → EDBEDREQTM 23:50 → ENRESERV 09-26 02:20
PROVIDERS: ADMIT Internal Medicine; ATTEND Internal Medicine
PROC: 0DBP8ZZ Excision of Rectum, Via Natural or Artificial Opening Endoscopic (ICD-10-PCS; principal; 2019-10-02)
DX: K57.31 Diverticulosis of large intestine without perforation or abscess with bleeding (principal); R57.8 Other shock; I50.32 Chronic diastolic (congestive) heart failure; I48.92 Unspecified atrial flutter; E87.1 Hypo-osmolality and hyponatremia; R47.01 Aphasia; N39.0 Urinary tract infection, site not specified; E11.65 Type 2 diabetes mellitus with hyperglycemia; I11.0 Hypertensive heart disease with heart failure; I48.91 Unspecified atrial fibrillation; N14.1 Nephropathy induced by other drugs, medicaments and biological substances; E88.09 Other disorders of plasma-protein metabolism, not elsewhere classified; D32.9 Benign neoplasm of meninges, unspecified; E87.6 Hypokalemia; R80.9 Proteinuria, unspecified; K76.0 Fatty (change of) liver, not elsewhere classified; B96.20 Unspecified Escherichia coli [E. coli] as the cause of diseases classified elsewhere; T50.8X5A Adverse effect of diagnostic agents, initial encounter; D64.9 Anemia, unspecified; Z95.828 Presence of other vascular implants and grafts; Z86.718 Personal history of other venous thrombosis and embolism; Z86.011 Personal history of benign neoplasm of the brain; Z79.4 Long term (current) use of insulin; Z79.2 Long term (current) use of antibiotics; Z79.899 Other long term (current) drug therapy; Z79.82 Long term (current) use of aspirin; I69.398 Other sequelae of cerebral infarction
CPT/HCPCS: 36415; 36600; 71045; 74177; 76700; 80048; 80053; 81003; 82270; 82375; 82550; 82570; 82805; 82962; 83036; 83735; 83880; 84100; 84300; 84484; 85014; 85018; 85025; 85027; 85044; 86850; 86900; 87077; 87186; 88305; 93005; 96361; 96374; 96375; 97162; 99285; C9113; J0692; J1815; J2060; J2250; J2405; J2704; J2765; J3010; J3490; J7040; J7060; J7070; Q9963; Q9967